=== PATIENT | female | born 1985 | race African-American/Black ===

== ENCOUNTER 2017-03-29 10:52 | Emergency (ER) | payer BC, MEDICAID ==
[~2017-03-29] VITALS: Ht 162.6 cm; Wt 77.1 kg
[2017-03-29 10:52] VITALS: BP 136/78
== END 2017-03-29 12:10 | disposition home or self-care (01) ==
LOC: ER 10:54
DX: S93.401A Sprain of unspecified ligament of right ankle, initial encounter (principal); E03.9 Hypothyroidism, unspecified; W10.9XXA Fall (on) (from) unspecified stairs and steps, initial encounter; Y93.89 Activity, other specified; Y92.89 Other specified places as the place of occurrence of the external cause; Y99.9 Unspecified external cause status
CPT/HCPCS: 73610-TC; A4606; Z7610